=== PATIENT | female | born 1990 | race Caucasian/White ===

== ENCOUNTER → 2022-02-26 00:28 | Outpatient (CLI) | payer BC, SELFPAY ==
--- NOTE | 2022-02-26 | DI.MRI_ITS ---
Exam(s) MR BRAIN WO/W EXAM: MR BRAIN WO/W CLINICAL HISTORY: POSITIONAL HEADACHE,G44.89,PARESTHESIAS,R20.2,TINNITUS,H93.13 TECHNIQUE: Multiplanar multisequence MRI of the brain was performed. Both noninfused and contrast i nfused sequences were performed. IV Contrast injected was 16 cc Dotarem. COMPARISON: No exams were available for comparison FINDINGS: CEREBRAL PARENCHYMA: No evidence of intracranial hemorrhage, mass effect nor shift of midline structu re. No extraaxial fluid collections. Ventricles are not enlarged nor shifted. There is no significant focal signal abnormality in the cerebellar hemispheres nor within the vernon, m idbrain, and thalami. There is no abnormal signal abnormality in the periventricular white matter. There are no ring enhancing lesions in the brain. There is no abnormal meningeal enhancement. No ab normal enhancing lesions seen in the region of the cerebral 0 pontine angles and internal auditory ca nals. PITUITARY GLAND: No mass nor parasellar abnormality. No obvious abnormality in the cavernous sinuses. FLOW VOIDS: The expected flow void are noted. No evidence of obvious aneurysm nor obvious vascular ma lformation. PARANASAL SINUSES: There is prominent mucosal thickening and fluid levels in both maxillary sinuses. Also opacification of ethmoidal air cells bilaterally. Some mucosal thickening is also noted in the frontal sinuses and sphenoid sinuses bilaterally. ORBITS: No obvious abnormal findings. IMPRESSION: 1. No significant intracranial findings on this MRI scan of the brain. 2. No abnormal enhancing intracranial findings. 3. There is acute bilateral maxillary sinusitis superimposed upon prominent mucosal thickening in liu th maxillary sinuses. DATA REPOSITORY:
[2022-02-26] MEDS: Normal Saline Flush 10 ML SYR IVP (10:55)
== END ==
PROVIDERS: PCP Nurse Practitioner; Visit Provider Nurse Practitioner Family
DX: G44.89 Other headache syndrome (principal); H93.13 Tinnitus, bilateral; R20.2 Paresthesia of skin; J01.00 Acute maxillary sinusitis, unspecified
CPT/HCPCS: 70553

== ENCOUNTER 2023-01-17 15:54 | Outpatient (REF) | payer BC, SELFPAY ==
[2023-01-17 19:10] LABS: Abs Immature Grans 0.01 10^3/uL (0.0-0.06); Absolute Basophil Count 0.03 10^3/uL (0.0-0.2); Absolute Lymphocyte Count 2.75 10^3/uL (1.2-3.4); Absolute Monocyte Count 0.78 10^3/uL (0.1-0.8); Basophils % 0.3; Eosinophils % 1.2; HCT 38.8 % (36.0-46.0); HGB 13.5 g/dL (11.2-15.7); Immature Grans % 0.1; Lymphocytes % 31.7; MCH 29.6 pg (27.0-33.0); MCHC 34.8 % (32.0-36.0); MCV 85 fL (80-95); MPV 11.5 fL (8.0-11.0); Neutrophils % 57.7; Platelet Count 239 10^3/uL (130-400); RBC 4.56 10^6/uL (3.93-5.22); RDW 12.1 % (11.7-14.6); RDW-SD 37.2 fL; WBC 8.67 10^3/uL (4.4-10.8)
[2023-01-17 19:36] LABS: ALT 25 U/L (14-59); AST 14 U/L (15-37); Albumin 4.1 g/dL (3.4-5.0); Alkaline Phosphatase 67 U/L (46-116); Anion Gap 10.6 mmol/L (3-11); BUN 9 mg/dL (7-18); Bilirubin, Total 0.3 mg/dL (0.2-1.0); CO2 26.4 mmol/L (21.0-32.0); CREATININE 0.7 mg/dL (0.55-1.02); Calcium 9.7 mg/dL (8.5-10.1); Calculated LDL 99 mg/dL (<100); Chloride 105 mmol/L (98-107); Cholesterol 178 mg/dL (<200); Estimated GFR 116.31 (mL/min/1.73m2); Glucose 84 mg/dL (74-106); HDL Cholesterol 68 mg/dL (40-60); Potassium 4.1 mmol/L (3.5-5.1); Sodium 142 mmol/L (136-145); TSH 2.13 uIU/mL (0.36-3.74); Total Protein 7.7 g/dL (6.4-8.2); Triglyceride 59 mg/dL (<150)
[2023-01-17 20:05] LABS: FREE T4 0.96 ng/dL (0.76-1.46)
== END 2023-01-17 15:55 | disposition home or self-care (01) ==
LOC: NCHCN 15:54
PROVIDERS: PCP Nurse Practitioner; Visit Provider Nurse Practitioner Family
DX: R00.2 Palpitations (principal); Z13.220 Encounter for screening for lipoid disorders
CPT/HCPCS: 80053; 80061; 84439; 84443; 85025